=== PATIENT | female | born 1990 | race Two or more races ===

== ENCOUNTER → 2020-09-25 | Outpatient (CLI) | payer OTHER | END | disposition home or self-care (01) | LOC: PRENATAL 10:00 | PROVIDERS: ATTEND Obstetrics & Gynecology Maternal & Fetal Medicine | DX: O35.0XX1 Maternal care for (suspected) central nervous system malformation in fetus, fetus 1 (principal); O35.3XX1 Maternal care for (suspected) damage to fetus from viral disease in mother, fetus 1; O98.513 Other viral diseases complicating pregnancy, third trimester; O36.8131 Decreased fetal movements, third trimester, fetus 1; Z36.89 Encounter for other specified antenatal screening; Z3A.30 30 weeks gestation of pregnancy ==

== ENCOUNTER 2020-11-25 15:00 | Inpatient (IN) | payer OTHER ==
[~2020-11-25] VITALS: Ht 152.4 cm; Wt 94.3 kg
[2020-12-06] MEDS ORDERED: PRENATA CHEWAB1 EACH PO (23:58)
== END 2020-12-09 14:06 | disposition home or self-care (01) | DRG 807 ==
LOC: OB/GYN 12-07 07:44 → LDR 12-07 07:44 → OB/GYN 12-08 01:21 → SURH 12-08 15:00 → OB/GYN 12-09 14:06
PROVIDERS: ADMIT Obstetrics & Gynecology; ATTEND Obstetrics & Gynecology
PROC: 10E0XZZ Delivery of Products of Conception, External Approach (ICD-10-PCS; principal; 2020-12-07)
PROC: 0W8NXZZ Division of Female Perineum, External Approach (ICD-10-PCS; 2020-12-07)
PROC: 10907ZC Drainage of Amniotic Fluid, Therapeutic from Products of Conception, Via Natural or Artificial Opening (ICD-10-PCS; 2020-12-07)
PROC: 4A1HXFZ Monitoring of Products of Conception, Cardiac Rhythm, External Approach (ICD-10-PCS; 2020-12-07)
DX: O80 Encounter for full-term uncomplicated delivery (principal); Z37.0 Single live birth; Z3A.39 39 weeks gestation of pregnancy

== ENCOUNTER 2020-12-06 22:25 | Outpatient (CLI) | payer OTHER ==
[2020-12-06] MEDS ORDERED: PRENATA CHEWAB1 EACH PO (23:58)
== END 2020-12-07 11:46 | disposition still patient (30) ==
LOC: OBS/DEL 22:25
PROVIDERS: ATTEND Obstetrics & Gynecology
DX: O47.1 False labor at or after 37 completed weeks of gestation (principal); Z3A.39 39 weeks gestation of pregnancy